=== PATIENT | female | born 1985 | race Caucasian/White ===

== ENCOUNTER 2024-07-22 19:05 | Emergency (ER) | payer BC ==
[~2024-07-22] VITALS: Ht 162.6 cm; Wt 66.7 kg
[2024-07-22] MEDS ORDERED: HYDROCODON-ACE1 EA10 PO (19:14)
[2024-07-22] MEDS ORDERED: ASPIRIN 81 MG CHEW PO ONE (19:15)
[2024-07-22] MEDS ORDERED: NITROGLYCERIN 0.4 MG SUBL SL PRN (19:15)
[2024-07-22 19:24] LABS: BASOPHILS 0.9 % (0-2); EOSINOPHILS 2.2 % (0-6); HEMATOCRIT 41.3 % (35.0-50.0); HEMOGLOBIN 14.1 g/dL (12.0-18.0); LYMPHOCYTES 32.6 % (24-44); MCH 31.5 (27-36); MCHC 34.1 g/dl (30-36); MCV 92.2 fl (81-99); MONOCYTES 13.2 % (0-12); NEUTROPHILS 51.1 % (39-80); PLATELET COUNT 213 K/uL (140-440); RBC 4.48 M/ul (4.3-5.7); RDW 13.3 (10.5-15.0)
[2024-07-22 19:41] LABS: ALBUMIN 3.8 g/dL (3.4-5.0); ANION GAP 10.6 (7-21); BILIRUBIN, TOTAL 0.9 ng/dL (0.2-1.0); BUN/CREATININE RATIO 8.6 (6.0-28.6); CREATININE, SERUM 0.93 mg/dL (0.55-1.02); MAGNESIUM 1.9 mg/dL (1.8-2.4); POTASSIUM 3.6 mmol/L (3.5-5.1); PROTEIN, TOTAL 7.6 g/dL (6.4-8.2)
[2024-07-22] MEDS ORDERED: LIDOCAINE & ANTACID 35 ML BTL PO ONE (20:30)
[2024-07-22] MEDS ORDERED: LORazepam 1 MG HOME.PACK PO ONE (20:30)
[2024-07-22] MEDS ORDERED: LORazepam 2 MG/ML VIAL IV ONE (20:30)
--- OUTSIDE RECORDS SUMMARY | 2024-07-22 20:44 | XMS ---
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 Bonnie VISIT COUNT (12 MO.) 2 [place] 2 [facility] 1 [facility] 1 [facility] 1 Lucy Campos [address] [facility] TOTAL 10 NOTE: Visits indicate total known visits. ED/UCC VISIT TRACKING (12 MO.) 07/22/2024 19:05 [facility] [place] TYPE: Emergency COMPLAINT: - CHEST PAIN 07/22/2024 13:35 [facility] [place] [facility] TYPE: Emergency COMPLAINT: - Anxiety DIAGNOSES: - Palpitations - Anxiety - Palpitations 06/12/2024 07:25 [facility] TYPE: Emergency DIAGNOSES: - Acute gastritis without bleeding - abd pain, fever - Abdominal Pain - Chills - Vomiting (Severe) 06/12/2024 02:15 [facility] TYPE: Emergency DIAGNOSES: - Chest pain, unspecified 06/11/2024 21:07 [facility] TYPE: Emergency COMPLAINT: - Chest pain, Nausea 06/11/2024 03:19 [facility] TYPE: Emergency DIAGNOSES: - Unspecified abdominal pain - Abdominal Pain 12/17/2023 11:11 [facility] TYPE: Emergency DIAGNOSES: - Other chest pain - CP 09/19/2023 22:09 [facility] TYPE: Emergency DIAGNOSES: - Bipolar disorder, unspecified - CHEST PRESSURE / HEAD ACHE 09/05/2023 22:21 [facility] TYPE: Emergency COMPLAINT: - Anxiety DIAGNOSES: - Generalized anxiety disorder - Panic disorder [episodic paroxysmal anxiety] - ANXIETY 09/05/2023 14:01 [facility] TYPE: Emergency COMPLAINT: - Anxiety DIAGNOSES: - Anxiety disorder, unspecified - Anxiety - EMS TRIAGE INPATIENT VISIT TRACKING (12 MO.) No inpatient visits to display in this time frame [id number]
[2024-07-22 20:55] VITALS: BP 119/81
--- NOTE | 2024-07-22 21:02 | EKG ---
[facility] [address] [facility] [place] [address] Signed Normal sinus rhythm with sinus arrhythmia Normal ECG No previous ECGs available Confirmed by Shannon Michelle MD ([id number]) on 07/22/2024 9:01:47 PM Electronically Signed By: SHANNON MICHELLE DO 07/22/242101 PATIENT NAME: HALEY ZIMMER Electrocardiogram DATE OF : 83 PHYSICIAN: SHANNON MICHELLE DO REPORT #: [id number] REPORT IS CONFIDENTIAL AND NOT TO BE RELEASED WITHOUT AUTHORIZATION
[2024-07-23] MEDS ORDERED: ATIVAN1 MG PO (05:23)
[2024-07-23] MEDS ORDERED: MECLIZINE HCL25 MG PO (05:49)
== END 2024-07-22 20:55 | disposition home or self-care (01) ==
LOC: ED 19:05
PROVIDERS: Family Medicine
DX: R07.89 Other chest pain (principal); R00.2 Palpitations
CPT/HCPCS: 36415; 71045; 80053; 83735; 84484; 84703; 85025; 85379; 93005; 93010; 96374; 99285-25; A9270; J2060

== ENCOUNTER 2024-07-23 05:13 | Emergency (ER) | payer BC ==
[~2024-07-23] VITALS: Ht 162.6 cm; Wt 60.0 kg
[~2024-07-23 05:13] MED LIST: HYDROCODON-ACE1 EA10 PO
--- OUTSIDE RECORDS SUMMARY | 2024-07-23 05:21 | XMS ---
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 Bonnie VISIT COUNT (12 MO.) 2 [place] [facility] 2 [place] 2 [facility] 1 [facility] 1 Lucy Campos 1 [facility] [address] [facility] TOTAL 11 NOTE: Visits indicate total known visits. ED/UCC VISIT TRACKING (12 MO.) 07/23/2024 05:14 [facility] [place] TYPE: Emergency COMPLAINT: - WOOZY 07/22/2024 19:05 [facility] [place] TYPE: Emergency COMPLAINT: - CHEST PAIN 07/22/2024 13:35 [facility] [place] [facility] TYPE: Emergency COMPLAINT: - Anxiety DIAGNOSES: - Palpitations - Anxiety - Palpitations 06/12/2024 07:25 [facility] TYPE: Emergency DIAGNOSES: - Acute gastritis without bleeding - abd pain, fever - Abdominal Pain - Chills - Vomiting (Severe) 06/12/2024 02:15 [facility] TYPE: Emergency DIAGNOSES: - Chest pain, unspecified 06/11/2024 21:07 [facility] TYPE: Emergency COMPLAINT: - Chest pain, Nausea 06/11/2024 03:19 [facility] TYPE: Emergency DIAGNOSES: - Unspecified abdominal pain - Abdominal Pain 12/17/2023 11:[facility] DIAGNOSES: - Other chest pain - CP 09/19/2023 22:09 [facility] TYPE: Emergency DIAGNOSES: - Bipolar disorder, unspecified - CHEST PRESSURE / HEAD ACHE 09/05/2023 22:21 [facility] TYPE: Emergency COMPLAINT: - Anxiety DIAGNOSES: - Generalized anxiety disorder - Panic disorder [episodic paroxysmal anxiety] - ANXIETY 09/05/2023 14:01 [facility] TYPE: Emergency COMPLAINT: - Anxiety DIAGNOSES: - Anxiety disorder, unspecified - Anxiety - EMS TRIAGE INPATIENT VISIT TRACKING (12 MO.) No inpatient visits to display in this time frame [id number]
[2024-07-23] MEDS ORDERED: ATIVAN1 MG PO (05:23)
[2024-07-23] MEDS ORDERED: DEXAMETHASONE SOD PHOS 4 MG/ML VIAL IM ONE (05:30)
[2024-07-23] MEDS ORDERED: MECLIZINE HCL 25 MG TAB PO ONE (05:30)
[2024-07-23] MEDS ORDERED: MECLIZINE HCL25 MG PO (05:49)
[2024-07-23 06:02] VITALS: BP 122/85
== END 2024-07-23 06:03 | disposition home or self-care (01) ==
LOC: ED 05:13
DX: R42 Dizziness and giddiness (principal); Z79.899 Other long term (current) drug therapy
CPT/HCPCS: 96372; 99283; A9270; J1100